=== PATIENT | female | born 1970 | race Caucasian/White ===

== ENCOUNTER 2019-12-05 14:59 | Outpatient (CLI) | payer BC ==
--- NOTE | 2019-12-05 15:35 | MMO ---
Right Breast MAMMO Unilat Diag DDI RT+ALLI. CLINICAL HISTORY: Patient is 49 years old and is seen for diagnostic exam. VIEWS: The views performed were: . FILMS COMPARED: The present examination has been compared to a prior imaging study performed at [facility] [place] on 10/17/2019. This study has been interpreted with the assistance of computer-aided detection. MAMMOGRAM FINDINGS: Asymmetry does not persist on additional views and is felt to represent superimposed breast tissue. There are no suspicious masses, suspicious calcifications, or new areas of architectural distortion. IMPRESSION: THERE IS NO MAMMOGRAPHIC EVIDENCE OF MALIGNANCY. A ROUTINE FOLLOW-UP MAMMOGRAM IN 1 YEAR IS RECOMMENDED. THE RESULTS OF THIS EXAM WERE SENT TO THE PATIENT. ACR BI-RADS Category 2 - Benign finding MAMMOGRAPHY NOTE: 1. A negative mammogram report should not delay a biopsy if a dominant of clinically suspicious mass is present. 2. Approximately 10% to 15% of breast cancers are not detected by mammography. 3. Adenosis and dense breasts may obscure an underlying neoplasm. Reported by: JITENDRA ESTRELLA MD Electonically Signed: [id number]
== END 2019-12-05 15:00 | disposition home or self-care (01) ==
LOC: BICMAMMO 14:59
PROVIDERS: ATTEND Obstetrics & Gynecology
DX: N63.10 Unspecified lump in the right breast, unspecified quadrant (principal)
CPT/HCPCS: G0279

== ENCOUNTER 2021-01-09 14:40 | Outpatient (CLI) | payer BC | END 2021-01-09 14:41 | disposition home or self-care (01) | LOC: BICMAMMO 14:40 | PROVIDERS: ATTEND Obstetrics & Gynecology | DX: N63.10 Unspecified lump in the right breast, unspecified quadrant (principal) | CPT/HCPCS: 77066; G0279 ==